=== PATIENT | male | born 1970 | race African-American/Black ===

== ENCOUNTER → 2017-12-29 | Emergency (ER) | payer SELFPAY ==
[~2017-12-29] VITALS: Ht 182.9 cm; Wt 86.2 kg
[2017-12-29 22:41] VITALS: BP 128/64
== END | disposition left against medical advice (07) ==
LOC: EDBD 22:43 → EMR 22:48
DX: Z53.21 Procedure and treatment not carried out due to patient leaving prior to being seen by health care provider (principal)
CPT/HCPCS: 99281